=== PATIENT | male | born 1965 | race African-American/Black ===

== ENCOUNTER 2020-06-27 10:38 | Observation (INO) ==
[2020-06-27] MEDS ORDERED: 0.9 % Sodium Chloride 1,000 ML ONE ×3 (11:18→16:06)
[2020-06-27] MEDS ORDERED: ISOVUE-370 200 ML INFUS..BTL ONE ×2 (14:14→16:14)
[2020-06-27] MEDS ORDERED: *HR* FentaNYL (PF) 100 MCG/2 ML VIAL ONE (14:14)
[2020-06-27] MEDS ORDERED: Heparin 1,000 UNITS/500 mL 500 ML ONE ×2 (14:14→16:11)
[2020-06-27] MEDS ORDERED: *HR* Midazolam HCl 2 MG/2 ML VIAL ONE (14:14)
[2020-06-27] MEDS ORDERED: Nitroglycerin 1,000 MCG/5 ML VIAL IV ONE (14:14)
[2020-06-27] MEDS ORDERED: *HR* Heparin 10,000 UNIT/10 ML VIAL ONE ×2 (14:14→16:04)
[2020-06-27] MEDS ORDERED: *HR* Ticagrelor 90 MG TABLET ONE (16:06)
[2020-06-27] MEDS ORDERED: Nitroglycerin 0.4 MG TAB.SUBL SL PRN (17:28)
[2020-06-27] MEDS: 0.9 % Sodium Chloride 1,000 ML IVC SCH (20:34)
[2020-06-27] MEDS: Metoprolol XL (24 HR) Succ 25 MG TAB.ER.24H PO SCH (20:35)
[2020-06-28] MEDS: 0.9 % Sodium Chloride 1,000 ML IVC SCH (04:47)
[2020-06-28 05:32] LABS: Hematocrit 35.9 % (37.5-50.1); Hemoglobin 12.2 g/dL (12.9-16.9)
[2020-06-28 05:41] LABS: BUN/Creatinine Ratio 13 (6-26); Blood Urea Nitrogen 12 mg/dL (6-20); eGFR For African Americans > 60 (> 60); eGFR For Non-African Americans > 60 (> 60)
[2020-06-28 06:51] VITALS: BP 136/67
[2020-06-28] MEDS: Metoprolol XL (24 HR) Succ 25 MG TAB.ER.24H PO SCH (08:02)
[2020-06-28] MEDS ORDERED: Aspirin 81 MG TAB.CHEW PO SCH (09:00)
[2020-06-28] MEDS ORDERED: Isosorbide MONOnitrate (24 HR) 30 MG TAB.ER.24H PO SCH (09:00)
[2020-06-28] MEDS ORDERED: lisinopriL 10 MG TABLET PO SCH (09:00)
== END 2020-06-28 10:12 | disposition home or self-care (01) ==
LOC: 2ANU 10:38 → INVDIALAB 10:38
PROVIDERS: ADMIT Internal Medicine Cardiovascular Disease; ATTEND Internal Medicine Cardiovascular Disease